=== PATIENT | female | born 2005 | race Two or more races ===

== ENCOUNTER 2024-09-13 22:31 | Emergency (ER) | payer MEDICAID, SELFPAY ==
[2024-09-13 22:35] VITALS: BMI 32.9
[2024-09-13 23:14] VITALS: BP 140/88; PULSE 100; RESP 20; TEMP 36.4; O2SAT 99
--- NOTE | 2024-09-13 23:21 | EKG_ITS ---
[facility] Test Date: 2024-09-13 Pat Name: [facility] Department: Room: - Gender: Female [employer]ging [employer]: : 2005 Requested By: Matthew Rucker Order Number: [id number] Reading MD: Matthew Rucker Measurements Intervals [place] Rate: 80 P: 33 [place]: 139 QRS: 70 QRSD: 98 T: 20 QT: 342 QTc: 395 Interpretive Statements SINUS RHYTHM WITH MARKED SINUS ARRHYTHMIA NONSPECIFIC T-WAVE ABNORMALITY No previous ECG available for comparison /[id number]/[email or web address]/[id number]
--- NOTE | 2024-09-13 23:21 | XR_ITS ---
Examination: PA lateral chest 2 views TECHNIQUE: Upright PA and lateral chest 2 views Exam date and time: 2024, 11:35 PM INDICATIONS: Chest pain beginning one week ago FINDINGS: Normal heart size. Lungs are clear. The osseous structures are intact IMPRESSION: No active disease
--- NOTE | 2024-09-13 23:22 | PD.EDRME ---
Rapid Medical Screening Exam RME Arrival date/time: 09/13/24 22:31 18 year old female present to ED for c/o flu like sx I have greeted and performed a focused initial assessment of this patient. A comprehensive ED assessment and evaluation of the patient, analysis of all test results, and completion of the medical decision making process will be conducted by additional ED providers. Chief Complaint: General Adult/Misc Complain Time Seen by Provider: 09/13/24 22:55 Vital signs: Vital Signs Temperature 97.6 F 09/13/24 23:14 Pulse Rate 100 09/13/24 23:14 Respiratory Rate 20 09/13/24 23:14 Blood Pressure 140/88 H 09/13/24 23:14 Pulse Oximetry (%) 99 09/13/24 23:14 Oxygen Delivery Method Room Air 09/13/24 23:14
[2024-09-13 23:41] LABS: Basophils % (Auto) 0 % (0-2.5); Eosinophils # (Auto) 0.1 Thou/mm3 (0.0-0.5); Eosinophils % (Auto) 1 % (0-10); Hematocrit 35.6 % (36.0-46.0); Hemoglobin 12.1 g/dL (12.0-16.0); Immature Granulocytes % (Auto) 0 % (0-0); Immature Granulocytes Auto 0.03 Thou/mm3 (0.00-0.00); Lymphocytes # (Auto) 1.9 Thou/mm3 (1.0-5.0); Lymphocytes % (Auto) 20 % (10-50); Mean Corpuscular Volume 88 fL (80-100); Monocytes # (Auto) 0.4 Thou/mm3 (0.0-0.8); Monocytes % (Auto) 5 % (0-12); Neutrophils # (Auto) 7.1 Thou/mm3 (1.8-7.7); Neutrophils % (Auto) 74 % (37-80); Nucleated Red Blood Cell % 0 /100 WBC (0); Platelet Count 343 Thou/mm3 (140-440); RDW Standard Deviation 39.4 fL (36.4-46.3); Red Blood Count 4.04 Miln/mm3 (4.00-5.20); White Blood Count 9.6 Thou/mm3 (4.5-11.0)
[2024-09-14 00:02] LABS: Alanine Aminotransferase 13 U/L (10-49); Albumin, Serum 4.8 gm/dL (3.5-5.0); Albumin/Globulin Ratio 1.7 (1.2-2.2); Alkaline Phosphatase 60 U/L (46-116); Anion Gap 12 (7-16); Aspartate Amino Transferase 16 U/L (0-34); BUN/Creatinine Ratio 9 Ratio (12-20); Bilirubin,Total 0.4 mg/dL (0.3-1.2); Blood Urea Nitrogen 6 mg/dL (9-23); Calcium 10.4 mg/dL (8.3-10.6); Calcium (Corrected) 10.4 mg/dL (8.5-10.1); Carbon Dioxide 19.7 mMol/L (20.0-31.0); Chloride 107 mMol/L (98-107); Creatinine (Component) 0.7 mg/dL (0.6-1.3); Globulin 2.9 gm/dL (2.3-3.5); Glucose 96 mg/dL (74-106); Osmolality,Calculated 275 (275-295); Potassium 3.6 mMol/L (3.4-5.1); Sodium 139 mMol/L (136-145); Total Protein 7.7 gm/dL (5.7-8.2); Troponin I < 0.020 ng/mL (0.0-0.045); eGFR > 60 See Note
[2024-09-14] MEDS: ONDANSETRON ODT 4 MG TABRAP PO (00:08)
[2024-09-14 00:09] LABS: HCG,Qualitative Serum Negative
[2024-09-14] MEDS: ACETAMINOPHEN 500 MG TABLET 1000 MG PO (00:09)
[2024-09-14 00:17] LABS: Strep A Rapid Negative (Negative)
[2024-09-14 01:41] LABS: Mono Screen Negative (Negative)
--- NOTE | 2024-09-14 02:08 | EDNOTE_ITS ---
ED General RME/HPI General Chief complaint: General Adult/Misc Complain Stated complaint: DYSPEA POSS FEVER Time Seen by Provider: 09/13/24 22:55 Arrival date/time: 09/13/24 22:31 18 year old female present to emergency room with c/o of flu like symptoms for 2 days. Pt denies any sick contact SEVERITY: Symptoms are described as being severe with limitations on activities of daily living CONTEXT: The patient is unable to identify any inciting events. DURATION/TIMING: The symptoms started approximately 2 days ago and have been constant since and have been progressive getting worse. ASSOCIATED SYMPTOMS: bilateral hand tingling, shortness of breath, subject fever MODIFYING FACTORS: The patient is unable to identify any alleviating or aggravating symptoms. PERTINENT ROS:no chest pain/shortness of breath no nausea,vomiting, diarrhea, no rash no loc/syncope episode no abd/back pain no dsyuria,urgency,frequency REVIEW OF SYSTEMS: See History of Present Illness - with the exception of those mentioned in the history of present illness, all other systems reviewed and reported as negative GENERAL: In general the patient is awake, interactive, in an emergency department gurney. HEAD/EYES/EARS/NOSE/THROAT: normo-cephalic, atraumatic, mucus membranes are moist, anicteric, palpebral conjunctiva is pink, trachea is midline. CARDIOVASCULAR: regular rate and regular rhythm, no murmurs, heart sounds are not distant, strong pulses in all four extremities that are equal and symmetric bilateral upper and lower extremities, normal capillary refill. CHEST/PULMONARY: normal chest rise and fall, good air movement, clear to auscultation bilaterally, normal inspiratory to expiratory ratios without evidence of respiratory distress. NECK: No midline/Paraspinal tenderness, no step off ROM/Strenght intact No Kernig and bruzinski sign. No trauma ABDOMEN: soft, not tender, no masses appreciated BACK: normal range of motion without pain. NEUROLOGICAL: cranio-facial features are symmetric, moves all four extremities equally without obvious limitations or weakness. EXTREMITY: no tenderness to palpation over the long bones or large joints of the bilateral upper and lower extremities, no joint swelling, no joint erythema, no signs of trauma, no unilateral leg swelling and no peripheral edema. SKIN: warm, dry, well-perfused, no jaundice, no rash, no telangiectasias or petechia. PSYCH: calm, cooperative, no evidence of psychosis or agitation RME / HPI RME / HPI narrative: 09/13/24 22:31 18 year old female present to ED for c/o flu like sx I have greeted and performed a focused initial assessment of this patient. A comprehensive ED assessment and evaluation of the patient, analysis of all test results, and completion of the medical decision making process will be conducted by additional ED providers. Related Data Allergies Allergy/AdvReac Type Severity Reaction Status Date / Time No Known Allergies Allergy Verified 09/13/24 22:40 Course Course Course Narrative: This? patient presents with symptoms suspicious for likely viral upper respiratory infection. Differential includes bacterial pneumonia, sinusitis, allergic rhinitis, strep,mono, anxiety, Do not suspect underlying cardiopulmonary process. I considered, but think unlikely, dangerous causes of this patient?s symptoms to include ACS, CHF or COPD exacerbations, pneumonia, pneumothorax. Patient is nontoxic appearing and not in need of emergent medical intervention. Plan: reassurance, reassessment, over the counter medications, discharge with PCP followup Quality Measures none Orders Category Date Time Status Bedside Influenza A&B Antigen Test NOW Care 09/13/24 23:21 Completed EKG (ED ONLY) *Do not use* NOW Care 09/13/24 23:21 Completed EKG (ED Only) Stat Exams 09/13/24 23:21 Draft XR chest 2V Stat Exams 09/13/24 23:21 Completed CBC Stat Lab 09/13/24 23:34 Completed CMP [Comprehensive Metabolic Panel] Stat Lab 09/13/24 23:34 Completed HCG,Qualitative Serum Stat Lab 09/13/24 23:34 Completed [place] Screen Stat Lab 09/14/24 00:49 Completed Strep A Rapid Stat Lab 09/13/24 23:49 Completed Troponin I Stat Lab 09/13/24 23:34 Completed Acetaminophen Tab [Tylenol ES Tab] Med 09/13/24 23:21 Discontinued 1,000 mg PO X1 ONE Ondansetron Odt [Zofran Odt] Med 09/13/24 23:21 Discontinued 4 mg PO X1 ONE Reevaluation(s) Reevaluation #1: pt is feeling better Vital Signs Vital signs: Vital Signs Temperature 97.6 F 09/13/24 23:14 Pulse Rate 100 09/13/24 23:14 Respiratory Rate 20 09/13/24 23:14 Blood Pressure 140/88 H 09/13/24 23:14 Pulse Oximetry (%) 99 09/13/24 23:14 Oxygen Delivery Method Room Air 09/13/24 23:14 Procedures -ED EKG Interpretation #1: Date of EK09/14/24 Rate: 80 Interpretation: Reviewed by me EKG Impression: Normal sinus rhythm, No acute ST-T changes, No ectopy, No ischemic changes, Normal QRS and Normal intervals MDM Patient data External records reviewed:: [facility] previous records Clinical information provided by:: patient Social determinants that could affect healthcare access:: none Patient has the following chronic illnesses:: n/a How is presenting disease/condition affected by chronic disease/condition?: no chronic disease Evaluation data The following diagnostics were reviewed and interpreted by me:: lab results, radiology exam(s) and EKG tracing(s) Lab and/or radiology exams considered but not ordered:: n/a Interpretation Summary: mono, strep, flu negative cbc/cmp wnl trop wnl cxr: nad Medications Medications considered but not ordered:: n/a Medication administrations:: Medication Administration History Discontinued Medications Acetaminophen (Acetaminophen 500 Mg Tablet) 1,000 mg PO X1 ONE Stop: 09/13/24 23:22 Last Admin: 09/14/24 00:09 Dose: 1,000 mg Documented By: JAMIE Ondansetron HCl (Ondansetron Odt 4 Mg Tabrap) 4 mg PO X1 ONE; Protocol Stop: 09/13/24 23:22 Last Admin: 09/14/24 00:08 Dose: 4 mg Documented By: JAMIE as state above Consultations Consultation(s) initiated? (list below): No Diagnosis Differential Diagnosis ED Complaint MDM: uri, pna, mono, strep, dehydration, uti, anxiety/panic attack Most likely diagnosis given after review of the tests above:: uri Admission Indicated Admission indicated?: not indicated Explain why admission is indicated or not indicated:: n/a Admission Request Was there a request for admission?: No Disposition Plan Disposition Plan: Discharge Discharge Attestation Discharge Attestation: The patient and all family members were given an opportunity to ask questions and understood the discharge instructions. Discharge instructions specifically effects, indications for sooner follow up or return to the emergency department, and the expected course of current diagnosis. Patient condition: Stable Medical Decision Making Differential Diagnosis Differential Diagnosis: uri, pna, mono, strep, dehydration, uti, anxiety/panic attack Lab Data 09/13/24 23:34 09/13/24 23:34 Labs: Lab Results 09/13/24 09/13/24 Range/Units 23:34 23:49 WBC 9.6 (4.5-11.0) Thou/mm3 RBC 4.04 (4.00-5.20) Miln/mm3 Hgb 12.1 (12.0-16.0) g/dL Hct 35.6 L (36.0-46.0) % MCV 88 (80-100) fL MCH 30.0 (25.0-35.0) pg MCHC 34.0 (31.0-37.0) g/dl RDW Std Deviation 39.4 (36.4-46.3) fL Plt Count 343 (140-440) Thou/mm3 Neut % (Auto) 74 (37-80) % Lymph % (Auto) 20 (10-50) % [place] % (Auto) 5 (0-12) % Eos % (Auto) 1 (0-10) % Baso % (Auto) 0 (0-2.5) % Neut # (Auto) 7.1 (1.8-7.7) Thou/mm3 Lymph # (Auto) 1.9 (1.0-5.0) Thou/mm3 [place] # (Auto) 0.4 (0.0-0.8) Thou/mm3 Eos # (Auto) 0.1 (0.0-0.5) Thou/mm3 Baso # (Auto) 0.0 (0.0-0.2) Thou/mm3 Immature Gran # (Auto) 0.03 H (0.00-0.00) Thou/mm3 Absolute Nucleated RBC 0.00 (0.00-0.00) Thou/mm3 Immature Gran % 0 (0-0) % Nucleated RBC % 0 (0) /100 WBC Sodium 139 (136-145) mMol/L Potassium 3.6 (3.4-5.1) mMol/L Chloride 107 (98-107) mMol/L Carbon Dioxide 19.7 L (20.0-31.0) mMol/L Anion Gap 12 (7-16) BUN 6 L (9-23) mg/dL Creatinine 0.7 (0.6-1.3) mg/dL Estim Creat Clear Calc 128.0 (>60) mL/min eGFR > 60 (60 - ) See Note BUN/Creatinine Ratio 9 L (12-20) Ratio Glucose 96 (74-106) mg/dL Calculated Osmolality 275 (275-295) Calcium 10.4 (8.3-10.6) mg/dL Corrected Calcium 10.4 H (8.5-10.1) mg/dL Total Bilirubin 0.4 (0.3-1.2) mg/dL AST 16 (0-34) U/L ALT 13 (10-49) U/L Alkaline Phosphatase 60 (46-116) U/L Troponin I < 0.020 (0.0-0.045) ng/mL Total Protein 7.7 (5.7-8.2) gm/dL Albumin 4.8 (3.5-5.0) gm/dL Globulin 2.9 (2.3-3.5) gm/dL Albumin/Globulin Ratio 1.7 (1.2-2.2) HCG, Qual Negative Monoscreen Negative (Negative) Group A Strep Rapid Negative (Negative) Discharge Plan Plan Patient Disposition: HOME (Self Care) Health Concerns: Follow with PMD as directed Take tylenol or motrin as need Return to ED if sx worsen Prescriptions/Referrals Referrals: No Primary/Family,Physician [Primary Care Provider] - In 1 week Problem List Clinical Impression: URI (upper respiratory infection) Patient/Caregiver Discharge Instructions Education Materials: ED URI, Viral, No Abx (Adult) Print Language: Citizen [place] Stand Alone Forms: Kathy Award Info., Patient Portal Info Letter
[2024-09-14 02:40] VITALS: RESP 18
== END 2024-09-14 04:23 | disposition home or self-care (01) ==
PROVIDERS: Physician Assistant; Emergency Provider Emergency Medicine
DX: J06.9 Acute upper respiratory infection, unspecified (principal); I49.8 Other specified cardiac arrhythmias
CPT/HCPCS: 36415; 71046; 80053; 84484; 84703; 85025; 86308; 87400; 87651; 93005; 99283; Q0162; A9270